=== PATIENT | male | born 1985 | race Caucasian/White ===

== ENCOUNTER 2016-11-20 | Emergency (ER) | payer OTHER ==
[~2016-11-20] VITALS: Ht 172.7 cm; Wt 67.9 kg
[~2016-11-20] MED LIST: EPIPEN ADU0.3 MG/0.3 IM; MELOXICAM7.5 MG PO; MOTRIN600 MG PO; NAPROSYN500 MG PO; NOHOMEMEDS; PERCOCET 5/31 TABLET PO; TRAMADOL HCL50 MG PO; TYLENOL WITH C1 EACH PO; ULTRAM50 MG PO; ZANTAC150 MG PO; ZOFRAN ODT4 MG PO; no home
[2016-11-20] MEDS ORDERED: MOTRIN800 MG PO (01:19)
[2016-11-20] MEDS ORDERED: CLEOCIN300 MG PO (01:19)
[2016-11-20 01:27] VITALS: BP 133/82
== END 2016-11-20 01:28 | disposition home or self-care (01) ==
LOC: EME
DX: K02.9 Dental caries, unspecified (principal); M25.561 Pain in right knee; R68.84 Jaw pain; Z91.81 History of falling; F17.200 Nicotine dependence, unspecified, uncomplicated; Z88.0 Allergy status to penicillin
CPT/HCPCS: 73564; 99281; 99283

== ENCOUNTER 2016-12-07 18:25 | Emergency (ER) | payer OTHER ==
[~2016-12-07] VITALS: Ht 172.7 cm; Wt 68.1 kg
[~2016-12-07 18:25] MED LIST changes: +CLEOCIN300 MG PO; +MOTRIN800 MG PO
[2016-12-07 18:58] LABS: HEMATOCRIT 40.9 % (38.0-50.0); MCH 31.8 PG (29.0-34.0); MCHC 33.5 G/DL (30.0-36.0); MCV 94.9 FL (86-99); MEAN PLAT.VOLUME 9.4 uM^3 (9.0-12.4); PLATELET COUNT 223 K/uL (156-360); RBC DIS.WIDTH-CV 13.2 % (11.8-14.6); RBC DIS.WIDTH-SD 46.4 % (39-53); RED BLOOD COUNT 4.31 M/uL (4.00-5.50); WHITE BLOOD COUNT 8.8 K/uL (4.1-10.2)
[2016-12-07 19:13] LABS: CHLORIDE 102 mEq/L (99-109); SODIUM 144 mEq/L (136-147)
[2016-12-07 19:15] LABS: GLUCOSE 86 mg/dL (70-99)
[2016-12-07 19:16] LABS: ANION GAP 10 MEQ/L (2-14)
[2016-12-07 19:19] LABS: GFR ESTIMATE (CALCULATED) > 59 mL/min/
[2016-12-07 19:20] LABS: TROP-I INTERPRETATION NEGATIVE; TROPONIN-I < 0.01 ng/mL (0.0-0.30); UREA NITROGEN (BUN) 10 mg/dL (9-23)
[2016-12-07] MEDS ORDERED: INDOCIN50 MG PO (20:07)
[2016-12-07] MEDS ORDERED: PREDNISONE50 MG PO (20:07)
[2016-12-07 20:25] VITALS: BP 111/72
== END 2016-12-07 20:27 | disposition home or self-care (01) ==
LOC: EME 18:25
DX: R07.89 Other chest pain (principal); G89.29 Other chronic pain; M54.9 Dorsalgia, unspecified; R56.9 Unspecified convulsions; F17.200 Nicotine dependence, unspecified, uncomplicated; Z88.0 Allergy status to penicillin
CPT/HCPCS: 71020; 80048; 84484; 85027; 93005; 99281; 99284

== ENCOUNTER 2016-12-11 17:33 | Emergency (ER) | payer OTHER ==
[~2016-12-11] VITALS: Ht 172.7 cm; Wt 63.0 kg
[~2016-12-11 17:33] MED LIST changes: +INDOCIN50 MG PO; +PREDNISONE50 MG PO
[2016-12-11 18:49] LABS: EOSINOPHIL (%) 0.6 % (0-5); EOSINOPHIL COUNT 0.1 K/uL (0-0.3); HEMATOCRIT 37.1 % (38.0-50.0); IMMATURE GRANULOCYTE (%) 0.3 % (0.0-0.7); INSTRUMENT ABS NEUTROPHIL CT 8.7 K/uL; LYMPHOCYTE COUNT 2.8 K/uL (1.0-2.8); MCH 31.6 PG (29.0-34.0); MCHC 33.7 G/DL (30.0-36.0); MCV 93.7 FL (86-99); MEAN PLAT.VOLUME 9.4 uM^3 (9.0-12.4); MONOCYTE (%) 7.3 % (3-12); MONOCYTE COUNT 0.9 K/uL (0-0.8); NEUTROPHIL (%) 69.2 % (45-76); NEUTROPHIL COUNT 8.7 K/uL (1.8-6.4); PLATELET COUNT 209 K/uL (156-360); RED BLOOD COUNT 3.96 M/uL (4.00-5.50); WHITE BLOOD COUNT 12.5 K/uL (4.1-10.2)
[2016-12-11 18:58] LABS: CHLORIDE 103 mEq/L (99-109); POTASSIUM 3.3 mEq/L (3.7-5.4); SODIUM 141 mEq/L (136-147)
[2016-12-11 19:01] LABS: GLUCOSE 90 mg/dL (70-99)
[2016-12-11 19:02] LABS: ANION GAP 11 MEQ/L (2-14); TOTAL BILIRUBIN 0.6 mg/dL (0.0-1.0)
[2016-12-11 19:03] LABS: SERUM ETHYL ALCOHOL 53 mg/dL
[2016-12-11 19:04] LABS: ALKALINE PHOSPHATASE 63 IU/L (3-129); GFR ESTIMATE (CALCULATED) > 59 mL/min/
[2016-12-11 19:05] LABS: UREA NITROGEN (BUN) 11 mg/dL (9-23)
[2016-12-11 20:15] LABS: AMPHETAMINE NEGATIVE (500 ng/mL); BARBITURATES NEGATIVE (200 ng/mL); BENZODIAZEPINES NEGATIVE (150 ng/mL); COCAINE NEGATIVE (150 ng/mL); INTERNAL CONTROLS VALID? YES; METHADONE NEGATIVE (200 ng/mL); METHAMPHETAMINE NEGATIVE (500 ng/mL); OPIATES (MORPHINE) NEGATIVE (100 ng/mL); OXYCODONE NEGATIVE (100 ng/mL); PHENCYCLIDINE NEGATIVE (25 ng/mL); PROPOXYPHENE NEGATIVE (300 ng/mL); THC CANNABINOIDS NEGATIVE (50 ng/mL); TRICYCLIC ANTIDEPRESSANTS NEGATIVE (300 ng/mL)
[2016-12-11 23:05] LABS: ADD MIUA? NO; BILIRUBIN NEGATIVE; BLOOD NEGATIVE; COLOR AMBER ((YELLOW)); GLUCOSE (STRIP) NEGATIVE; KETONES NEGATIVE; LEUKOCYTES NEGATIVE; NITRITE NEGATIVE; PROTEIN (STRIP) NEGATIVE; SPECIFIC GRAVITY 1.029 (1.000-1.030); UCUL ADDED? NO
[2016-12-12 01:01] VITALS: BP 138/86
== END 2016-12-12 01:04 ==
LOC: EME 17:33
PROVIDERS: Emergency Medicine
DX: F23 Brief psychotic disorder (principal); F10.129 Alcohol abuse with intoxication, unspecified; Y90.2 Blood alcohol level of 40-59 mg/100 ml; R05 Cough; F17.200 Nicotine dependence, unspecified, uncomplicated
CPT/HCPCS: 80053; 81003; 85025; 90837; G0480; J1630; J2060